=== PATIENT | male | born 1990 | race Two or more races ===

== ENCOUNTER 2020-07-02 10:13 | Emergency (ER) | payer SELFPAY ==
[~2020-07-02] VITALS: Ht 162.6 cm; Wt 84.0 kg
[2020-07-02 10:20] VITALS: BP 146/70
[2020-07-02] MEDS ORDERED: PRED-220 PO (11:21)
[2020-07-02] MEDS ORDERED: METH4TAB2 PO (11:21)
[2020-07-02] MEDS ORDERED: TRAM50TA PO (11:21)
[2020-07-02] MEDS ORDERED: ACYC800T PO (11:21)
--- NOTE | 2020-07-02 11:22 | PHYS DOC ---
Past Medical History Past Medical History: No Pertinent History Past Surgical History: No Surgical History Smoking Status: Current Every Day Smoker Alcohol Use: Occasionally General Adult EDM: Chief Complaint: OTHER COMPLAINTS HPI: HPI: Patient is a 29 year old male with no significant medical history who presents to the ED today with a rash on the right buttock that began 3 days ago. Patient reports the rash is very painful. Denies any new contacts. Review of Systems: Review of Systems: Constitutional: Denies fever or chills. [] ] Musculoskeletal: Denies back pain or joint pain. [] Integument: Reports rash to the right buttock Neurologic: Denies headache, focal weakness or sensory changes. [] Psychiatric: Denies depression or anxiety. [] Heart Score: Risk Factors: Risk Factors: DM, Current or recent (<one month) smoker, HTN, HLP, family history of CAD, obesity. Risk Scores: Score 0 - 3: 2.5% MACE over next 6 weeks - Discharge Home Score 4 - 6: 20.3% MACE over next 6 weeks - Admit for Clinical Observation Score 7 - 10: 72.7% MACE over next 6 weeks - Early Invasive Strategies Allergies: Allergies: Allergies Coded Allergies Type Severity Reaction Last Updated Verified No Known Drug Allergies 07/02/20 No Physical Exam: PE: Constitutional: Well developed, well nourished, no acute distress, non-toxic appearance. [] Skin: Warm, dry, right buttock with a mild erythematous vesicular rash consistent with shingles. Back: No tenderness, no CVA tenderness. [] Extremities: No tenderness, no cyanosis, no clubbing, ROM intact, no edema. [] Neurologic: Alert and oriented X 3, normal motor function, normal sensory function, no focal deficits noted. [] Psychologic: Affect normal, judgement normal, mood normal. [] Current Patient Data: Vital Signs: Vital Signs Date Time Temp Pulse Resp B/P (MAP) Pulse Ox O2 Delivery O2 Flow Rate FiO2 07/02/20 10:20 98.0 92 16 146/70 (95) 98 Room Air 98.0 EKG: EKG: [] Radiology/Procedures: Radiology/Procedures: [] Course & Med Decision Making: Course & Med Decision Making Pertinent Labs and Imaging studies reviewed. (See chart for details) This is a [age]-year-old male patient presenting to the ED today with a shingles rash to the right buttock. Rash has been present for 3 days. Provided prednisone acyclovir and something for pain. Follow-up with PCP in 2 weeks. Dominique Disclaimer: Dominique Disclaimer: This electronic medical record was generated, in whole or in part, using a voice recognition dictation system. Departure Departure Impression: Primary Impression: Shingles Qualified Codes: B02.9 - Zoster without complications Disposition: HOME, SELF-CARE Condition: STABLE Referrals: NO PCP (PCP) AUGUSTO VAZQUEZ MD follow up in 2 weeks Patient Instructions: Shingles, [id number] Additional Instructions: You have shingles rash. This rash is contagious. Ensure you have pants on at all times. Do not be around women or infants. Take the prescribed medications as ordered and follow-up with your doctor in 2 weeks Scripts Tramadol Hcl (TRAMADOL HCL) 50 Mg Tablet 50 MG PO Q6HRS PRN for PAIN, #40 TAB Prov: MUTKI PINEDA EMR IMPLEMENTATION SPECIALIST 07/02/20 Prednisone (PREDNISONE ) 10 Mg Tablet 10 MG PO UD for PREDNISONE TAPER, #39 TAB 0 Refills Take 3 tablets by mouth twice a day for 3 days, then take 2 tablets by mouth twice a day for 3 days, then take 1 tablet by mouth twice a day for 3 days, then take 1 tablet by mouth daily x 3 days, then stop. Prov: KI BORJA EMR IMPLEMENTATION SPECIALIST 20 Acyclovir (ACYCLOVIR) 800 Mg Tablet 1 TAB PO 5XDAY, #50 TAB Prov: KI BORJA EMR IMPLEMENTATION SPECIALIST 10//20 Methylprednisolone (MEDROL) 4 Mg Tab.ds.pk 1 PKG PO UD, #1 PKG Prov: LAWRENCEAKI EMR IMPLEMENTATION SPECIALIST 20 KI BORJA EMR IMPLEMENTATION SPECIALIST Jul 02, 2020 11:22
== END 2020-07-02 12:32 | disposition home or self-care (01) ==
LOC: ER 10:13
DX: B02.9 Zoster without complications (principal); L53.9 Erythematous condition, unspecified; F17.200 Nicotine dependence, unspecified, uncomplicated
CPT/HCPCS: 99283